=== PATIENT | male | born 1980 | race Caucasian/White ===

== ENCOUNTER 2016-09-20 11:45 | Emergency (ER) | payer BC, OTHER ==
[~2016-09-20] VITALS: Ht 165.1 cm; Wt 77.0 kg
[2016-09-20 11:50] VITALS: Ht 165.1 cm; Wt 77.0 kg
--- NOTE | 2016-09-20 13:58 | RADRPT ---
PROCEDURE: Chest Radiograph. CLINICAL INDICATION: Cough TECHNIQUE: Single frontal chest radiograph. COMPARISON: None available FINDINGS: The cardiomediastinal silhouette is within normal limits. No infiltrate or effusion is seen. Th e bones are intact. IMPRESSION: 1. Unremarkable chest radiograph. RPTAT: KK .Bhavin Peña MD, MD Date Time Electronically viewed and signed by .Bhavin Peña MD, on 09/20/2016 13:57 .B/
[2016-09-20] MEDS ORDERED: PROM5SYR2 PO (14:10)
[2016-09-20] MEDS ORDERED: LORA1TAB54 PO (14:10)
[2016-09-20] MEDS ORDERED: FLUT9.9S NASAL (14:10)
--- NOTE | 2016-09-20 16:05 | ERD ---
ER Documentation Chief Complaint Date/Time DATE: 09/20/16 TIME: 16:02 Chief Complaint cough/congestion x 2 weeks; nausea HPI This is a 36-year-old male presenting to the emergency room complaining of cough , congestion, sore throat for the past 2 weeks. Patient states that he started off with a fever but denies any fevers this past couple weeks. Patient states that he has had a couple episodes of vomiting after coughing in the mornings. Patient denies any diarrhea, constipation, abdominal pain. He admits to having mild chest discomfort when he coughs. Denies shortness of breath. Patient has not tried any medications today ROS All systems reviewed and are negative except as per history of present illness. Medications Home Meds Active Scripts Promethazine HCl/Codeine (Prometh-Codein 6.25-10 mg/5 ml) 5 Ml Syrup, 5 ML PO Q6 Y for COUGH, #60 Prov:RAÚL OVALLE PA-C 09/20/16 Fluticasone Propionate (Flonase Allergy Relief) 9.9 Ml [place].susp, 1 SPRAY NASAL BID for 14 Days, #1 BOTTLE TO EACH NOSTRIL Prov:RAÚL OVALLE PA-C 09/20/16 Loratadine/Pseudoephedrine* (Claritin-D* 12 Hr) 5-120 Mg Tab.er.12h, 1 TAB PO Q12, #20 TAB.SA Prov:RAÚL OVALLE PA-C 09/20/16 Allergies Allergies: Coded Allergies: No Known Allergy (Unverified , 09/20/16) PMhx/Soc Medical and Surgical Hx: pt denies Medical Hx, pt denies Surgical Hx Hx Alcohol Use: No Hx Substance Use: No Hx Tobacco Use: No Smoking Status: Never smoker Physical Exam Vitals Vital Signs Date Time Temp Pulse Resp B/P Pulse Ox O2 Delivery O2 Flow Rate FiO2 09/20/16 11:50 98.7 91 18 124/79 97 Physical Exam GENERAL: well-developed/well-nourished, in no apparent distress, non-toxic appearing HEAD: NC/AT, no swelling noted in frontal or maxillary areas EARS: bilateral tympanic membrane is intact without erythema or effusion NARES: congested THROAT: post nasal drip EYES: Conjunctiva normal NECK: Supple, no lymphadenopathy PULM: CTA bilaterally, no rales, rhonchi, or wheezing heard CV: Normal S1S2, RRR, good capillary refill GI: Soft, non-distended, normal bowel sounds, non-tender BACK: No midline tenderness, no masses EXT No clubbing, cyanosis, or edema NEURO: Alert and Orientated SKIN: Intact, normal turgor PSYCH: Normal mood and mentation Procedures/MDM This is a 36-year-old male presenting to the emergency department with symptoms that are most consistent with a viral and allergic upper respiratory infection for the past 2 weeks. There was no evidence of strep pharyngitis, pneumonia, respiratory distress. Patient appears well, he is afebrile. Chest x-rays are in the ED and did not show any evidence of infiltrates, no thorax profusion. Patient stable to be discharged home with prescription for Claritin-D, meclizine and Flonase. Discussed to follow-up with his primary care physician. Discussed return the ER for any worsening symptoms. He understands and agrees with plan Departure Diagnosis: Primary Impression: URI (upper respiratory infection) Condition: Stable Patient Instructions: Preventing Common Respiratory Infections, Uri, Viral, No Abx (Adult) Additional Instructions: You have been given a medicine which may cause drowsiness.DO NOT DRIVE OR OPERATE DANGEROUS MACHINERY while taking this medicine! La medicina que se le recet puede causarle sueo.NO DEBE MANEJAR NI OPERAR MAQUINARIAS PELIGROSAS mientras esta tomando esta medicina! FOLLOW UP WITH YOUR PRIMARY CARE PHYSICIAN TOMORROW.Return to this facility if you are not improving as expected. Take all medicines as directed. Return to this facility if you are not improving as expected. Visite a boyd aydee haile para un EXAMEN.Regrese a estas instalaciones si no se mejora funmi esperbamos o funmi le dijimos. [place] toda la medicina hao y funmi se le indic. Regrese a estas instalaciones si no se mejora funmi esperbamos o funmi le dijimos. Thank you for for coming to [facility] for your care today. Please ask your nurse or provider if you have questions about your care today and do not leave until all your questions have been answered. Please use any medications given as directed and follow-up with your doctor (or the doctor you were referred to) in the next 2-3 days. If you do not have a primary care doctor you may follow up at the [facility] (listed below). You may also use motrin and tylenol as needed for fever and/or pain unless instructed otherwise by your provider or nurse. Indications for more urgent follow-up have been discussed, but you may return to the Emergency Department at ANY time for any worrisome or worsening symptoms. RAÚL OVALLE PA-C Sep 20, 2016 16:05
== END 2016-09-20 14:27 | disposition home or self-care (01) ==
LOC: FTE 11:45
DX: J06.9 Acute upper respiratory infection, unspecified (principal)
CPT/HCPCS: 71010